=== PATIENT | male | born 1950 | race American Indian/Alaskan Native ===

== ENCOUNTER 2017-02-27 11:34 | Outpatient (CLI) | payer BC ==
[2017-02-27 12:48] LABS: Blood Urea Nitrogen 13 mg/dL (9-20)
[2017-02-27] MEDS ORDERED: NACL ONE (13:07)
--- NOTE | 2017-02-27 16:05 | Cat Scan Report ---
FINAL REPORT EXAM: CT NECK W CON HISTORY: ADENOPATHY TECHNIQUE: CT of the neck was performed after the administration of intravenous contrast. Coronal and sagittal reconstructions were included. PRIORS: None. FINDINGS: Parapharyngeal spaces: Normal. Adenoids/tonsils: Normal size. No abscess. Prevertebral soft tissues: No soft tissue swelling. Airway: Patent. Lymph nodes: No pathologically enlarged lymph nodes. Retropharynx: No abscess. Paranasal sinuses: Mucosal thickening is seen within the right maxillary sinus which is likely congestive or inflammatory. Old left medial orbital wall deformity is seen. Parotid and submandibular glands: Normal attenuation. Thyroid gland: No nodules. Vasculature: Patent. Cervical spine: Intact. Multilevel degenerative changes of the cervical spine are seen with multilevel neural foraminal narrowing. No spinal canal stenosis. IMPRESSION: 1. No evidence of cervical lymphadenopathy. No soft tissue masses are seen within the neck. 2. Multilevel degenerative changes of the cervical spine. 3. Mucosal thickening of the right maxillary sinus which is likely congestive or inflammatory.
--- NOTE | 2017-02-27 16:13 | Cat Scan Report ---
FINAL REPORT EXAM: CT CHEST W CON HISTORY: ADENOPATHY,COUGH TECHNIQUE: CT of the chest was performed after the administration of intravenous contrast. Reconstructions were included in the coronal and sagittal planes. PRIORS: None. FINDINGS: Great vessels: The thoracic aorta is normal in caliber. The great vessels are patent. Lungs and airways: No pleural effusion. There is a 5 millimeter subpleural nodule in the anterior aspect of the right middle lobe on series 3, image 151. A calcified granuloma is seen in the right lower lobe. Mild scarring is seen in the lingula. No airspace consolidation. The airways are patent. No bronchiectasis. Scarring or atelectasis is seen in the left lower lobe. Mediastinum, heart, pericardium: No mediastinal lymphadenopathy. No cardiac chamber enlargement. No pericardial effusion. Thoracic inlet, chest wall, axilla: No chest wall masses. The visualized portions of the thyroid gland demonstrate no focal lesion. No axillary lymphadenopathy. Upper abdomen: The visualized structures demonstrate no specific abnormality. Bones: No acute or chronic osseous finding. IMPRESSION: 5 millimeter right middle lobe pulmonary nodule. In a low risk patient, no routine follow-up is needed. In high risk patient, optional chest CT at 12 months could be considered.
== END 2017-02-27 11:35 | disposition home or self-care (01) ==
LOC: CT 11:34
PROVIDERS: ATTEND Specialist
DX: J84.10 Pulmonary fibrosis, unspecified (principal); R91.1 Solitary pulmonary nodule; J98.4 Other disorders of lung; R59.1 Generalized enlarged lymph nodes; R05 Cough; M47.892 Other spondylosis, cervical region
CPT/HCPCS: 36415; 70491; 71260; 82565; 84520; Q9967